=== PATIENT | female | born 1985 | race Caucasian/White ===

== ENCOUNTER 2019-05-06 11:53 | Day surgery (SDC) | payer BC, OTHER ==
[~2019-05-06] VITALS: Ht 154.9 cm; Wt 44.9 kg
[2019-05-06 12:56] VITALS: Ht 154.9 cm; Wt 44.9 kg
[2019-05-06] MEDS ORDERED: NO ACTIVE MEDS (13:00)
[2019-05-06 13:19] VITALS: BP 125/66; PULSE 66; RESP 18
--- NOTE | 2019-05-06 14:27 | PREAC ---
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 not on B-Leonardo Reported Medications [No Active Meds] No Conflict Check 05/06/19 Meds reviewed: Yes Allergies Coded Allergies: No Known Allergy (Unverified , 05/06/19) Allergies Reviewed: Yes Labs/Studies Labs Reviewed: Reviewed by anesthesiologist test: Negative Pre-procedure Exam Last vitals Vital Signs Date Temp Pulse Resp B/P (MAP) Pulse Ox O2 O2 Flow FiO2 Time Delivery Rate 05/06/19 98.2 66 18 125/66 100 Room Air 13:19 (85) Airway: Adequate mouth opening, Adequate thyromental dist Mallampati: Mallampati II Teeth: Normal Lung: Normal Heart: Normal ASA Physical Status ASA physical status: 2 Emergency: None Planned Anesthetic General/MAC: Mask Planned Pain Management Parenteral pain med Pre-operative Attestations Prior to commencing anesthesia and surgery, the patient was re-evaluated, there was verification of: *The patient's identity *The results of appropriate recent lab work and preoperative vital signs *The above evaluation not changing prior to induction *Anesthetic plan, risk benefits, alternative and complications discussed with patient/family; questions answered; patient/family understands, accepts and wishes to proceed. MOHAN CASTILLO MD May 06, 2019 14:27
[2019-05-06] MEDS ORDERED: LIDOCAINE 2% (SDV) 5 ML INJ ONE (14:29)
[2019-05-06] MEDS ORDERED: PROPOFOL 40 ML ONE (14:29)
[2019-05-06] MEDS ORDERED: ONDANSETRON 4 MG INJ IV PRN (14:30)
[2019-05-06] MEDS ORDERED: EPHEDrine 25 MG/5 ML SYG ONE (14:48)
[2019-05-06] MEDS ORDERED: PROPOFOL 20 ML ONE (14:48)
--- NOTE | 2019-05-06 14:59 | PAC ---
Date/Time of Note Date/Time of Note DATE: 05/06/19 TIME: 14:59 Post-Anesthesia Notes Post-Anesthesia Note Last documented vital signs Vital Signs Date Temp Pulse Resp B/P (MAP) Pulse Ox O2 O2 Flow FiO2 Time Delivery Rate 05/06/19 98.2 66 18 125/66 100 Room Air 13:19 (85) Activity: WNL Respiratory function: WNL Cardiovascular function: WNL Mental status: Baseline Pain reasonably controlled: Yes Hydration appropriate: Yes Nausea/Vomiting absent: Yes Comments BP: 98/58 HR: 99 RR: 15 T: 98 SaO2: 100% MOHAN CASTILLO MD May 06, 2019 14:59
[2019-05-06 15:22] VITALS: BP 107/63; PULSE 96; RESP 18
== END 2019-05-06 15:55 | disposition home or self-care (01) ==
LOC: GIL 11:53
PROVIDERS: ATTEND Internal Medicine Gastroenterology
DX: R19.7 Diarrhea, unspecified (principal); K64.8 Other hemorrhoids
CPT/HCPCS: 45380; 84703; 88305; Z7610